=== PATIENT | male | born 1970 | race Caucasian/White ===

== ENCOUNTER 2018-12-24 13:17 | Inpatient (IN) | payer OTHER ==
[~2018-12-24] VITALS: Ht 188 cm; Wt 126.6 kg
[2018-12-24 13:27] VITALS: BP 137/71
[2018-12-24 14:09] LABS: MCH 20.7 pg (26.0-34.0); MCHC 31.1 g/dL (28.0-37.0); MCV 66.8 fL (80.0-100.0); PLATELET COUNT 499 thou/uL (150-400); RBC 2.44 mil/uL (4.50-6.00); RDW 18.7 % (10.5-14.5); WBC 10.2 thou/uL (4.0-11.0)
[2018-12-24 14:14] LABS: HEMATOCRIT 16.3 % (42.0-52.0); HEMOGLOBIN 5.1 gm/dL (14.0-18.0)
[2018-12-24 14:22] LABS: CALCIUM 8.8 mg/dL (8.5-10.1); POTASSIUM 4.5 mmol/L (3.5-5.1); PROTIME 10.7 Seconds (9.3-11.4)
[2018-12-24 14:28] LABS: ALBUMIN 3.7 g/dL (3.4-5.0); TOTAL BILIRUBIN 0.4 mg/dL (<0.1-1.0); TOTAL PROTEIN 7.1 g/dL (6.4-8.2)
[2018-12-24 14:36] LABS: ABSOLUTE NEUTROPHILS 7.9 thou/uL (1.4-8.2)
[2018-12-24 14:37] LABS: ANISOCYTOSIS 2+; HYPOCHROMASIA 2+; METAMYELOCYTES 2 %; MICROCYTES 2+; OVALOCYTES FEW; POLYCHROMASIA OCCASIONAL
[2018-12-24 15:13] VITALS: BP 141/78; BP 152/87; BP 169/88; BP 181/89
[2018-12-24 15:27] LABS: % SATURATION 3 % (20-39); IRON 15 ug/dL (65-175); TIBC 512 ug/dL (250-450)
[2018-12-24 15:54] LABS: FOLIC ACID 18.8 ng/mL (8.6-58.9)
[2018-12-24 16:23] LABS: ABSOLUTE RETIC COUNT 0.1199 10^6/uL; OBSERVED RETIC COUNT 4.91 % (0.6-2.6)
[2018-12-24 17:16] VITALS: BP 132/77
[2018-12-24 17:31] VITALS: BP 132/77
[2018-12-24 19:43] VITALS: BP 126/84
[2018-12-24 20:56] VITALS: BP 124/76; BP 124/82; BP 126/85
[2018-12-25 02:31] LABS: HEMOGLOBIN 6.5 gm/dL (14.0-18.0)
[2018-12-25 02:33] LABS: HEMATOCRIT 20.5 % (42.0-52.0); MCH 22.3 pg (26.0-34.0); MCHC 31.6 g/dL (28.0-37.0); MCV 70.5 fL (80.0-100.0); PLATELET COUNT 456 thou/uL (150-400); RBC 2.91 mil/uL (4.50-6.00); RDW 22.2 % (10.5-14.5)
[2018-12-25 02:37] LABS: CREATININE 0.9 mg/dL (0.7-1.3); POTASSIUM 4.2 mmol/L (3.5-5.1)
[2018-12-25 03:38] LABS: ABSOLUTE NEUTROPHILS 7.6 thou/uL (1.4-8.2)
[2018-12-25 03:40] LABS: ANISOCYTOSIS 3+; HYPOCHROMASIA 2+; MICROCYTES 2+; PLATELET ESTIMATE INCREASED; POLYCHROMASIA 1+
[2018-12-25 03:45] VITALS: BP 121/83
[2018-12-25] MEDS ORDERED: CLONIDINE0.1 PO (05:42)
[2018-12-25] MEDS ORDERED: LISINOPRIL10 MG PO (05:43)
[2018-12-25] MEDS ORDERED: ZOCOR20 MG PO (05:43)
[2018-12-25 07:48] VITALS: BP 135/81
--- NOTE | 2018-12-25 08:11 | EKG ---
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1970 Requested By: Guanaco Servin Order Number: [id number] MD: aSndeep Pryor Measurements Intervals [place] Rate: 125 P: 54 SD: 153 QRS: 42 QRSD: 94 T: 49 QT: 308 QTc: 445 Interpretive Statements Sinus tachycardia Early R-wave progression No previous ECG available for comparison Electronically Signed On 12-25-2018 8:11:04 CDT by Sandeep Pryor [email or web address] ��������������������������������������������� <ELECTRONICALLY SIGNED> ���������������������������������������� By: Sandeep Pryor MD, [facility] ��������������������������������������������� 12/25/18 0811 1409 1409 Sandeep Pryor MD, FACC /EPI
[2018-12-25 11:11] LABS: GLYCOHEMOGLOBIN (HGB A1C) 5.4 % (4.8-5.6)
[2018-12-25 15:03] VITALS: BP 130/75
[2018-12-25 20:13] VITALS: BP 108/13
[2018-12-26 04:01] VITALS: BP 128/81
[2018-12-26 04:25] LABS: HEMATOCRIT 23.1 % (42.0-52.0); HEMOGLOBIN 7.3 gm/dL (14.0-18.0); MCHC 31.8 g/dL (28.0-37.0); MCV 72.4 fL (80.0-100.0); RBC 3.19 mil/uL (4.50-6.00); RDW 22.7 % (10.5-14.5)
[2018-12-26 08:45] VITALS: BP 118/77
[2018-12-26] MEDS ORDERED: PROTONIX40 M1 PO (10:33)
[2018-12-26] MEDS ORDERED: IRON325 PO (10:42)
[2018-12-26 14:39] VITALS: BP 118/77
--- NOTE | 2018-12-27 17:06 | PATH ---
[facility] [address] [place] [address] PATHOLOGY RPT PROCEDURE Name: SIMONE WILLIS Room #: 453-P DIS IN M.R.#: [id number] ������������������ Admission: 12/24/18 ������������������ Date of : 68 Discharge: 12/26/18 Report #: [id number] Path Case #: [id number] [facility] Accession Number: [id number] . 01 Material submitted: . PART A: duodenum - BX OF DUODENUM R/O CELIAC PART B: stomach - BX OF GASTRIC R/O H. PYLORI . 01 Clinical history: . Pre-OP DX: Hx of celiac Post-OP DX: Distal gastritis, Chandrika ulcers-duodenal bulb + secondary . 02 Diagnosis: A. Small bowel mucosa, duodenum rule out celiac, endoscopic biopsy: - Gastric-type mucosa associated with moderate active inflammation as well as surface ulceration. - No villous-type architecture present. - Negative for dysplasia or malignancy. . B. Gastric mucosa, gastric rule out H. pylori, endoscopic biopsy: - Mild chronic gastritis. - Negative for intestinal metaplasia or atrophy. - Negative for Helicobacter pylori (properly controlled immunohistochemical stain performed). . (IUV:kirk; 12/26/2018) MBR/12/26/2018 . 02 Comment: Examination of the "duodenum" biopsy tissue shows gastric-type mucosa and glands with moderate active gastritis as well as surface epithelial ulceration. This may represent heterotopic gastric mucosa associated with gastritis, or moderate acute peptic duodenitis. Villous-type architecture is not identified due to the findings. Increase in intraepithelial lymphocytes is not present therefore suggesting against celiac disease. A Helicobacter pylori immunohistochemical stain is ordered on block A1, and the results of this will be reported in an addendum to follow. (IUV:geriatric physician; 12/26/2018) . 02 Addendum: . This addendum is issued subsequent to reviewing a well-controlled Helicobacter pylori immunohistochemical stain performed on block A1. It is negative for Helicobacter pylori organisms. The originally rendered interpretation remains unchanged. (IUV:geriatric physician; 12/26/2018) . Professional services performed by [facility] at [facility], [place] [address] PATHOLOGY RPT PROCEDURE Name: SIMONE WILLIS Room #: 453-P DIS IN M.R.#: [id number] ������������������ Admission: 12/24/18 ������������������ Date of : 68 Discharge: 12/26/18 Report #: [id number] Path Case #: [id number] [address], [place] [address]. Technical services performed by [facility] at [address] [place] [address], [address], [place] [address]. QMS/12/27/2018 Addendum Electronically Signed by Komal Oreilly MD, Pathologist . 02 Electronically signed: . Komal Oreilly MD, Pathologist NPI- [id number] . 01 Gross description: . A. Received in formalin labeled "Simone Willis, BX of duodenum, rule out celiac," are 2 segments of monzon soft tissue measuring 1.1 x 0.2 x 0.2 cm in aggregate dimensions and measuring 0.5 cm each in maximum dimension. The specimen is submitted entirely in cassette A1. . B. Received in formalin labeled "Simone Willis, BX of gastric, rule out H. pylori," is a single segment of monzon soft tissue measuring 0.3 cm in maximum dimension. The specimen is entirely submitted in cassette B1. (TSD; 12/25/2018) TOB/TOB . 02 Pathologist provided ICD-10: K29.50, K25.9 . 02 CPT . 124588, 857850, P13367 Specimen Comment: A courtesy copy of this report has been sent to Specimen Comment: [phone], , . Specimen Comment: Report sent to ,DR SANTOS / DR TAYLOR Performed at: 01 [facility] [address] [place] [address] [address], [place], [place] [id number] MD Carlyle Shahid MD Phone: [phone] Performed at: 02 [facility] [address] [place], [place] [id number] MD Komal Oreilly MD Phone: [phone]
== END 2018-12-26 15:40 | disposition home or self-care (01) | DRG 378 ==
LOC: ER 13:17 → 4W 15:05 → EROBS 15:05 → 4W 17:31 → ENTRNSPT 12-26 15:17 → EDTRNSPTSTS 12-26 15:24 → 4W 12-26 15:40
PROVIDERS: Nurse Practitioner; Physician Assistant; ADMIT Hospitalist
DX: K26.4 Chronic or unspecified duodenal ulcer with hemorrhage (principal); D62 Acute posthemorrhagic anemia; E87.1 Hypo-osmolality and hyponatremia; F84.0 Autistic disorder; I10 Essential (primary) hypertension; E78.5 Hyperlipidemia, unspecified; R00.0 Tachycardia, unspecified; K90.0 Celiac disease; F41.9 Anxiety disorder, unspecified; F32.9 Major depressive disorder, single episode, unspecified; K44.9 Diaphragmatic hernia without obstruction or gangrene; Z79.899 Other long term (current) drug therapy
CPT/HCPCS: 10045; 62110; 62900; 70005